=== PATIENT | female | born 1980 | race African-American/Black ===

== ENCOUNTER 2023-09-06 09:15 | Emergency (ER) | payer OTHER ==
[2023-09-06] MEDS ORDERED: Ondansetron PF 4 MG/2 ML Vial ONE (09:37)
[2023-09-06 09:59] LABS: Bacteria/HPF None Seen HPF (None Seen); Bilirubin Negative (Negative); Blood, Urine Negative (Negative); CAUTI Indications for Culture Dysuria,urgency,freq; Clarity Clear (Clear); Glucose, Urine (Dipstick) Normal (Negative); Ketone, Urine Negative (Negative); Leukocyte 75 Leu/uL (Negative); Nitrite Negative (Negative); Protein, Urine (Dipstick) Negative (Neg-Trace); RBC/HPF None Seen HPF (0-3); Specific Gravity, Urine 1.014 (1.002-1.036); Urobilinogen Normal mg/dL (Less than 2); pH, Urine 5.5 (5.0-9.0)
[2023-09-06 10:00] LABS: Urine Culture Reflex No No
[2023-09-06 10:18] LABS: #Basophils 0.1 thou/uL (0.0-0.2); #Eosinphils 0.4 thou/uL (0.0-0.7); #Monocytes 0.7 thou/uL (0.11-0.59); #Neutrophils 4.1 thou/uL (1.40-6.50); %Basophils 1.3 % (0.0-1.0); %Eosinophils 4.9 % (0.0-10.0); %Lymphocytes 32.7 % (21.0-51.0); %Monocytes 9.1 % (0.0-10.0); %Neutrophils 51.5 % (42.0-75.0); Hematocrit 39.5 % (36.0-47.0); Hemoglobin 12.9 g/dL (12.0-16.0); Mean Corpuscular HGB CONC 32.7 g/dL (32.0-36.0); Mean Corpuscular Hemoglobin 28.9 pg (27.0-31.0); Mean Corpuscular Volume 88.6 fl (78.0-98.0); Mean Platelet Volume 10.4 fL (7.4-10.4); Platelet Count 256 10x3/uL (130-400); RBC Distribution Width 13.2 % (11.5-14.5); Red Blood Cell (RBC) Count 4.46 mill/uL (4.20-5.40); White Blood Cell (WBC) Count 7.9 10x3/uL (4.8-10.8)
[2023-09-06] MEDS ORDERED: Dicyclomine 20 MG TAB ONE (10:26)
[2023-09-06 10:30] LABS: BHCG - Serum Negative (NEGATIVE); Pregs Control Background? CLEAR/WHITE (CLR/WHITE); Pregs Control Bar Appear? YES (CONTROL BAR)
[2023-09-06] MEDS ORDERED: Dicyclomine 20 MG/2 ML VIAL ONE (10:30)
[2023-09-06 10:36] LABS: ALT (SGPT) 18 U/L (8-55); AST (SGOT) 19 U/L (5-34); Albumin 4.3 g/dL (3.5-5.0); Alkaline Phosphatase 112 U/L (40-110); Anion Gap 14 mmol/L (10-20); BUN (Urea Nitrogen) 12 mg/dL (7.0-18.7); Bilirubin, Total 0.3 mg/dL (0.2-1.2); Calc. Creatinine Clearance 0 mL/min (70-130); Calcium 9.1 mg/dL (7.8-10.44); Carbon Dioxide 23 mmol/L (22-29); Chloride 105 mmol/L (98-107); Estimated GFR 90; Globulin 3.4 g/dL (2.4-3.5); Glucose 133 mg/dL (70-105); Lipase 81 U/L (8-78); Potassium 4.4 mmol/L (3.5-5.1); Protein, Total 7.7 g/dL (6.0-8.3); Sodium 138 mmol/L (136-145)
[2023-09-06] MEDS ORDERED: Iopamidol-370 76% 500 ML MDV (1 ML CHARGE) ONE (10:39)
== END 2023-09-06 13:34 | disposition home or self-care (01) ==
LOC: ERS 09:15
DX: R10.9 Unspecified abdominal pain (principal); K92.1 Melena; I25.10 Atherosclerotic heart disease of native coronary artery without angina pectoris; E11.9 Type 2 diabetes mellitus without complications; K21.9 Gastro-esophageal reflux disease without esophagitis; I10 Essential (primary) hypertension; E66.9 Obesity, unspecified
CPT/HCPCS: 74177; 80053; 81001; 83690; 84703; 85025; 96372; 96374; J2405; Q9967

== ENCOUNTER 2024-10-10 16:16 | Emergency (ER) | payer OTHER ==
[2024-10-10 16:51] LABS: %Basophils 1.3 % (0.0-1.0); %Eosinophils 4.3 % (0.0-10.0); %Lymphocytes 25.2 % (21.0-51.0); %Monocytes 9.7 % (0.0-10.0); %Neutrophils 59.1 % (42.0-75.0); Hematocrit 37.1 % (36.0-47.0); Hemoglobin 12.1 g/dL (12.0-16.0); Mean Corpuscular HGB CONC 32.6 g/dL (32.0-36.0); Mean Corpuscular Hemoglobin 28.7 pg (27.0-31.0); Mean Corpuscular Volume 87.9 fL (78.0-98.0); Mean Platelet Volume 10.1 fL (7.4-10.4); Platelet Count 248 10x3/uL (130-400); RBC Distribution Width 13.5 % (11.5-14.5); Red Blood Cell (RBC) Count 4.22 mill/uL (4.20-5.40)
[2024-10-10 17:04] LABS: ALT (SGPT) 11 U/L (8-55); AST (SGOT) 15 U/L (5-34); Albumin 3.4 g/dL (3.5-5.0); Alkaline Phosphatase 98 U/L (40-110); Anion Gap 15 mmol/L (10-20); BUN (Urea Nitrogen) 6 mg/dL (7.0-18.7); Bilirubin, Total 0.3 mg/dL (0.2-1.2); Calc. Creatinine Clearance 0 mL/min (70-130); Calcium 8.5 mg/dL (7.8-10.44); Carbon Dioxide 23 mmol/L (22-29); Chloride 105 mmol/L (98-107); Estimated GFR 94; Globulin 4.1 g/dL (2.4-3.5); Glucose 113 mg/dL (70-105); Potassium 3.6 mmol/L (3.5-5.1); Protein, Total 7.5 g/dL (6.0-8.3); Sodium 139 mmol/L (136-145)
[2024-10-10] MEDS ORDERED: methylPREDNISolone Sod Succ/PF 125 MG/2 ML VIAL ONE (17:05)
[2024-10-10] MEDS ORDERED: Ipratropium/Albuterol 3 ML NEB ONE (17:05)
[2024-10-10 17:11] LABS: Troponin I Less than 0.010 ng/mL (< 0.028)
== END 2024-10-10 18:45 | disposition home or self-care (01) ==
LOC: ERS 16:16
DX: J44.1 Chronic obstructive pulmonary disease with (acute) exacerbation (principal); H66.91 Otitis media, unspecified, right ear; I25.10 Atherosclerotic heart disease of native coronary artery without angina pectoris; E11.9 Type 2 diabetes mellitus without complications; I10 Essential (primary) hypertension; Z86.711 Personal history of pulmonary embolism
CPT/HCPCS: 36415; 71046; 80053; 83880; 84484; 85025; 87081; 87428; 87430; 93005; 96374; J2919; J7620

== ENCOUNTER 2024-10-14 04:38 | Inpatient (IN) | payer OTHER ==
[2024-10-14] MEDS ORDERED: Ipratropium/Albuterol 3 ML NEB ONE ×2 (05:12→13:23)
[2024-10-14 05:18] LABS: Actual Bicarbonate (HCO3v) 19.9 mEq/L (22-28); Analyzer IN Cardio ER; Base Excess -4.4 mEq/L (-2.0 to +3.0); Calcium, Ionized (venous) 1.08 mmol/L (1.16-1.32); Chloride (VBG) 104 mmol/L (98-106); Hematocrit-VBG 39 % (36.0-47.0); Hemoglobin (Hb) 13.3 g/dL (11.7-16.0); Potassium (VBG) 3.57 mmol/L (3.70-5.30); Sodium 140 mmol/L (133-146); pH (venous) 7.381 (7.32-7.43)
[2024-10-14] MEDS ORDERED: Magnesium 2 GM/50 ML BAG (IN WATER) ONE (05:30)
[2024-10-14] MEDS ORDERED: methylPREDNISolone Sod Succ/PF 125 MG/2 ML VIAL ONE (05:30)
[2024-10-14] MEDS ORDERED: Sodium Chloride 0.9% 100 ML ONE (05:30)
[2024-10-14] MEDS ORDERED: cefTRIAXone (ROCEPHIN) 2 GM VIAL ONE (05:30)
[2024-10-14 05:35] LABS: %Basophils 1.2 % (0.0-1.0); %Eosinophils 2.3 % (0.0-10.0); %Lymphocytes 49.5 % (21.0-51.0); %Monocytes 8.8 % (0.0-10.0); %Neutrophils 37.4 % (42.0-75.0); Hematocrit 38.4 % (36.0-47.0); Hemoglobin 12.5 g/dL (12.0-16.0); Mean Corpuscular HGB CONC 32.6 g/dL (32.0-36.0); Mean Corpuscular Hemoglobin 28.5 pg (27.0-31.0); Mean Corpuscular Volume 87.7 fL (78.0-98.0); Mean Platelet Volume 10.8 fL (7.4-10.4); Platelet Count 253 10x3/uL (130-400); RBC Distribution Width 13.7 % (11.5-14.5); Red Blood Cell (RBC) Count 4.38 mill/uL (4.20-5.40)
[2024-10-14] MEDS ORDERED: Azithromycin 500 MG VIAL ONE (06:16)
[2024-10-14 06:19] LABS: ALT (SGPT) 22 U/L (8-55); AST (SGOT) 22 U/L (5-34); Albumin 3.2 g/dL (3.5-5.0); Alkaline Phosphatase 123 U/L (40-110); Anion Gap 15 mmol/L (10-20); BUN (Urea Nitrogen) 14 mg/dL (7.0-18.7); Bilirubin, Total 0.2 mg/dL (0.2-1.2); Calc. Creatinine Clearance 0 mL/min (70-130); Calcium 8.3 mg/dL (7.8-10.44); Carbon Dioxide 20 mmol/L (22-29); Chloride 109 mmol/L (98-107); Estimated GFR 66; Globulin 3.9 g/dL (2.4-3.5); Glucose 188 mg/dL (70-105); Potassium 3.5 mmol/L (3.5-5.1); Protein, Total 7.1 g/dL (6.0-8.3); Sodium 140 mmol/L (136-145)
[2024-10-14 06:27] LABS: Troponin I Less than 0.010 ng/mL (< 0.028)
[2024-10-14] MEDS ORDERED: Nitroglycerin 2% Ointment 1 INCH/1 GM Packet ONE (06:42)
[2024-10-14] MEDS ORDERED: Lorazepam 2 MG/ML VIAL ONE (06:43)
[2024-10-14 08:39] LABS: Troponin I Less than 0.010 ng/mL (< 0.028)
[2024-10-14 08:51] LABS: Lactic Acid 1.86 mmol/L (0.5-2.2)
[2024-10-14] MEDS ORDERED: Ondansetron PF 4 MG/2 ML Vial IVP PRN (10:00)
[2024-10-14] MEDS ORDERED: Ondansetron ODT 4 MG TAB PO PRN (10:00)
[2024-10-14 11:37] LABS: Troponin I Less than 0.010 ng/mL (< 0.028)
[2024-10-14] MEDS ORDERED: Lorazepam 1 MG TAB ONE (12:43)
[2024-10-14] MEDS ORDERED: methylPREDNISolone Sod Succ 40 MG VIAL ONE (12:43)
[2024-10-14] MEDS: Lorazepam 0.5 MG TAB PO SCH (12:50)
[2024-10-14] MEDS: methylPREDNISolone Sod Succ 40 MG VIAL IVP SCH (12:50)
[2024-10-14] MEDS: Ipratropium/Albuterol 3 ML NEB NEB SCH (13:28)
[2024-10-14] MEDS ORDERED: Ketorolac Tromethamine 30 MG (1 mL) VIAL ONE (17:07)
[2024-10-14 18:26] VITALS: BMI 69.2
[2024-10-14] MEDS: Famotidine 20 MG TAB PO SCH (20:50)
[2024-10-15 04:21] LABS: #Basophils Less than 0.03 10x3/uL (0.0-0.2); #Eosinophils Less than 0.03 10x3/uL (0.0-0.7); %Basophils 0.1 % (0.0-1.0); %Eosinophils 0.1 % (0.0-10.0); %Lymphocytes 16.3 % (21.0-51.0); %Monocytes 3.4 % (0.0-10.0); %Neutrophils 79.6 % (42.0-75.0); Hematocrit 39.7 % (36.0-47.0); Mean Corpuscular HGB CONC 32.7 g/dL (32.0-36.0); Mean Corpuscular Hemoglobin 28.3 pg (27.0-31.0); Mean Corpuscular Volume 86.3 fL (78.0-98.0); Mean Platelet Volume 10.7 fL (7.4-10.4); Platelet Count 276 10x3/uL (130-400); RBC Distribution Width 13.6 % (11.5-14.5)
[2024-10-15] MEDS: Acetaminophen 500 MG TAB PO PRN (04:42)
[2024-10-15 04:43] LABS: ALT (SGPT) 27 U/L (8-55); AST (SGOT) 24 U/L (5-34); Albumin 3.3 g/dL (3.5-5.0); Alkaline Phosphatase 80 U/L (40-110); Anion Gap 14 mmol/L (10-20); BUN (Urea Nitrogen) 13 mg/dL (7.0-18.7); Bilirubin, Total 0.4 mg/dL (0.2-1.2); Calc. Creatinine Clearance 302 mL/min (70-130); Calcium 8.7 mg/dL (7.8-10.44); Carbon Dioxide 20 mmol/L (22-29); Chloride 106 mmol/L (98-107); Estimated GFR 109; Glucose 164 mg/dL (70-105); Potassium 4.2 mmol/L (3.5-5.1); Protein, Total 7.3 g/dL (6.0-8.3); Sodium 136 mmol/L (136-145)
[2024-10-15] MEDS: cefTRIAXone\\ROCEPHIN 1 GM in Sodium Chloride 0.9% 100 ML IVPB SCH (05:18)
[2024-10-15] MEDS: guaiFENesin/Codeine 200 mg/20 mg 10 ml Cup PO PRN (10:39)
[2024-10-15] MEDS: Benzonatate 100 MG CAP PO PRN (10:39)
[2024-10-15] MEDS: Lorazepam 0.5 MG TAB PO PRN (10:39)
[2024-10-15] MEDS ORDERED: Dextrose 50% Abboject 50 ML SYRINGE SLOW IVP PRN (16:20)
[2024-10-15] MEDS ORDERED: Glucagon 1 MG/ML KIT IM PRN (16:20)
[2024-10-15] MEDS ORDERED: Dextrose 5% in Water 1,000 ML IV PRN (16:20)
[2024-10-15] MEDS: Enoxaparin 40 MG (0.4 mL) SYRINGE SC SCH (20:31)
[2024-10-15] MEDS ORDERED: Enoxaparin 40 MG (0.4 mL) SYRINGE SC SCH (21:00)
[2024-10-16 04:00] LABS: #Basophils Less than 0.03 10x3/uL (0.0-0.2); #Eosinophils Less than 0.03 10x3/uL (0.0-0.7); %Basophils 0.1 % (0.0-1.0); %Lymphocytes 11.8 % (21.0-51.0); %Neutrophils 82.3 % (42.0-75.0); Hematocrit 39.8 % (36.0-47.0); Hemoglobin 12.8 g/dL (12.0-16.0); Mean Corpuscular HGB CONC 32.2 g/dL (32.0-36.0); Mean Corpuscular Hemoglobin 28.4 pg (27.0-31.0); Mean Corpuscular Volume 88.2 fL (78.0-98.0); Mean Platelet Volume 10.5 fL (7.4-10.4); Platelet Count 285 10x3/uL (130-400); RBC Distribution Width 13.7 % (11.5-14.5); Red Blood Cell (RBC) Count 4.51 mill/uL (4.20-5.40)
[2024-10-16 04:13] LABS: Anion Gap 14 mmol/L (10-20); BUN (Urea Nitrogen) 16 mg/dL (7.0-18.7); Calc. Creatinine Clearance 282 mL/min (70-130); Calcium 8.8 mg/dL (7.8-10.44); Carbon Dioxide 22 mmol/L (22-29); Chloride 104 mmol/L (98-107); Estimated GFR 103; Glucose 227 mg/dL (70-105); Potassium 4.3 mmol/L (3.5-5.1); Sodium 136 mmol/L (136-145)
[2024-10-16] MEDS: Insulin Lispro 100 UNIT/ML 10 ML VIAL SC PRN ×2 (06:33→22:19)
[2024-10-16] MEDS: Losartan 25 MG TAB PO SCH (16:40)
[2024-10-16] MEDS: metFORMIN 500 MG TAB PO SCH (16:40)
[2024-10-16] MEDS: Apixaban 5 MG TAB PO SCH (19:47)
[2024-10-16] MEDS: Ketorolac Tromethamine 30 MG (1 mL) VIAL IVP SCH (22:19)
[2024-10-17] MEDS: Losartan 25 MG TAB PO SCH (08:22)
[2024-10-17] MEDS: hydrALAZINE 20 MG/ML VIAL SLOW IVP PRN (11:30)
[2024-10-17] MEDS: methylPREDNISolone Sod Succ 40 MG VIAL IVP SCH (20:24)
[2024-10-17] MEDS: Carvedilol 6.25 MG TAB PO SCH (20:24)
[2024-10-18] MEDS: Furosemide 20 MG TAB PO SCH (09:20)
[2024-10-18] MEDS: Hydrochlorothiazide 25 MG TAB PO SCH (09:21)
[2024-10-18] MEDS: FLU (Fluarix Triv) TS24-25(6MOS UP)/PF 45 MCG/0.5 ML Syringe IM ONE (09:27)
[2024-10-18 15:53] VITALS: BP 143/90; TEMP 98
== END 2024-10-18 16:18 | disposition home or self-care (01) | DRG 189 ==
LOC: ERS 04:38 → ERHOLD 07:30 → IMCU/EMU 17:57 → SURG B 10-17 13:48
PROVIDERS: ADMIT Internal Medicine; ATTEND Internal Medicine
DX: J96.01 Acute respiratory failure with hypoxia (principal); J44.1 Chronic obstructive pulmonary disease with (acute) exacerbation; Z68.44 Body mass index [BMI] 60.0-69.9, adult; E87.20 Acidosis, unspecified; F41.9 Anxiety disorder, unspecified; E66.01 Morbid (severe) obesity due to excess calories; I10 Essential (primary) hypertension; E11.9 Type 2 diabetes mellitus without complications; K21.9 Gastro-esophageal reflux disease without esophagitis; Z86.711 Personal history of pulmonary embolism; Z79.01 Long term (current) use of anticoagulants; Z90.49 Acquired absence of other specified parts of digestive tract; Z98.51 Tubal ligation status; I25.10 Atherosclerotic heart disease of native coronary artery without angina pectoris; F25.9 Schizoaffective disorder, unspecified
CPT/HCPCS: 36415; 36416; 71045; 80048; 80053; 82805; 83605; 83880; 84484; 85025; 87040; 93005; 93010; 93306; 94002; 94640; 94660; 94760; 96365; 96368; 96375; J0360; J0456; J0696; J1650; J1815; J1885; J2060; J2919; J3475; J7620